=== PATIENT | male | born 1955 | race African-American/Black ===

== ENCOUNTER 2018-07-20 09:46 | Emergency (ER) | payer OTHER ==
[~2018-07-20] VITALS: Ht 185.4 cm; Wt 68.0 kg
[2018-07-20 10:08] LABS: URINE BILIRUBIN NEGATIVE (Negative); URINE BLOOD NEGATIVE (Negative); URINE CLARITY CLEAR; URINE COLOR YELLOW; URINE GLUCOSE-RANDOM* 3+ (Negative); URINE KETONES NEGATIVE (Negative); URINE LEUKOCYTES-REFLEX NEGATIVE (Negative); URINE NITRITE-REFLEX NEGATIVE (Negative); URINE PROTEIN (DIPSTICK) NEGATIVE (Negative); URINE UROBILINOGEN 0.2 E.U./dl (0.2-1.0)
[2018-07-20 10:30] LABS: HEMATOCRIT 42.8 % (42.0-52.0); HEMOGLOBIN 14.6 gm/dL (14.0-18.0); MCH 27.6 pg (26.0-34.0); MCHC 34.2 g/dL (28.0-37.0); MCV 80.9 fL (80.0-100.0); RBC 5.29 mil/uL (4.50-6.00); RDW 15.4 % (10.5-14.5); WBC 9.2 thou/uL (4.0-11.0)
[2018-07-20 10:36] LABS: CALCIUM 9.3 mg/dL (8.5-10.1); CREATININE 1.3 mg/dL (0.7-1.3); POTASSIUM 3.8 mmol/L (3.5-5.1)
[2018-07-20 10:42] LABS: ALBUMIN 4.1 g/dL (3.4-5.0); TOTAL BILIRUBIN 0.9 mg/dL (<0.1-1.0); TOTAL PROTEIN 7.6 g/dL (6.4-8.2)
[2018-07-20] MEDS ORDERED: LISINOPRIL10 MG PO (11:31)
[2018-07-20] MEDS ORDERED: METFORMIN HCL500 MG PO (11:31)
[2018-07-20 11:41] VITALS: BP 185/96
--- NOTE | 2018-07-20 23:31 | EKG ---
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 : 1955 Requested By: Kristin Rodarte Order Number: [id number] MD: Sergio Watts Measurements Intervals [place] Rate: 94 P: 56 NV: 176 QRS: 1 QRSD: 86 T: 36 QT: 345 QTc: 432 Interpretive Statements Sinus rhythm Anterior infarct, old baseline wander non specific st/t wave changes No previous ECG available for comparison Electronically Signed On 07-20-2018 23:31:11 CDT by Sergio Watts [email or web address] ��������������������������������������������� <ELECTRONICALLY SIGNED> ���������������������������������������� By: Sergio Watts MD ��������������������������������������������� 07/20/18 2331 1003 02 Sergio Watts MD /PHILLY
== END 2018-07-20 11:49 | disposition home or self-care (01) ==
LOC: ER 09:46
PROVIDERS: Student in an Organized Health Care Education/Training Program
DX: E11.65 Type 2 diabetes mellitus with hyperglycemia (principal); I10 Essential (primary) hypertension

== ENCOUNTER 2018-10-27 06:17 | Emergency (ER) | payer OTHER ==
[~2018-10-27] VITALS: Ht 185.4 cm; Wt 61.2 kg
[~2018-10-27 06:17] MED LIST: LISINOPRIL10 MG PO; METFORMIN HCL500 MG PO
[2018-10-27 06:34] LABS: ABSOLUTE NEUTROPHILS 11.2 thou/uL (1.4-8.2); BASOPHILS 0.4 % (0.0-2.0); EOSINOPHILS 0.4 % (0.0-3.0); HEMATOCRIT 40.8 % (42.0-52.0); HEMOGLOBIN 13.7 gm/dL (14.0-18.0); LYMPHOCYTES 13.1 % (24.0-44.0); MCH 27.1 pg (26.0-34.0); MCHC 33.6 g/dL (28.0-37.0); MCV 80.5 fL (80.0-100.0); MONOCYTES 5.5 % (1.0-8.0); PLATELET COUNT 270 thou/uL (150-400); POLYS 80.6 % (36.0-66.0); RBC 5.07 mil/uL (4.50-6.00); RDW 14.6 % (10.5-14.5); WBC 13.8 thou/uL (4.0-11.0)
[2018-10-27] MEDS ORDERED: GLYBURIDE 2.52.5 MG PO (06:48)
[2018-10-27 06:53] LABS: ANION GAP 10 mmol/L (7-16); BUN 17 mg/dL (7-18); CHLORIDE 100 mmol/L (98-107); CO2 28 mmol/L (21-32); CREATININE 1.3 mg/dL (0.7-1.3); GLUCOSE 51 mg/dL (74-106); POTASSIUM 3.1 mmol/L (3.5-5.1); SODIUM 138 mmol/L (136-145)
[2018-10-27 06:54] LABS: APTT 26.5 Seconds (24.5-32.8); PROTIME 10.6 Seconds (9.3-11.4)
[2018-10-27 07:03] LABS: SGOT 15 U/L (15-37); SGPT 15 U/L (30-65); TOTAL BILIRUBIN 0.7 mg/dL (<0.1-1.0); TOTAL PROTEIN 7.5 g/dL (6.4-8.2); TROPONIN-I <0.06 ng/mL (<0.06)
[2018-10-27 08:50] VITALS: BP 146/83
--- NOTE | 2018-10-27 12:58 | EKG ---
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1955 Requested By: Ramon Catalan Order Number: [id number] MD: Haja Mitchell Measurements Intervals [place] Rate: 73 P: 49 [place]: 140 QRS: 7 QRSD: 93 T: 10 QT: 405 QTc: 447 Interpretive Statements Sinus rhythm Poor R wave progression Compared to ECG 07/20/2018 10:03:31 No significant changes Electronically Signed On 10-27-2018 12:58:43 CDT by Haja Mitchell [email or web address] ��������������������������������������������� <ELECTRONICALLY SIGNED> ���������������������������������������� By: Haja Mitchell MD, [facility] ��������������������������������������������� 10/27/18 [phone] Haja Mitchell MD, FACC /EPI
== END 2018-10-27 08:50 | disposition home or self-care (01) ==
LOC: ER 06:17
PROVIDERS: Emergency Medicine
DX: E11.649 Type 2 diabetes mellitus with hypoglycemia without coma (principal); I10 Essential (primary) hypertension; Z79.84 Long term (current) use of oral hypoglycemic drugs; Z79.899 Other long term (current) drug therapy

== ENCOUNTER 2019-10-26 01:44 | Emergency (ER) | payer OTHER ==
[~2019-10-26] VITALS: Ht 177.8 cm; Wt 68.0 kg
[~2019-10-26 01:44] MED LIST changes: +GLYBURIDE 2.52.5 MG PO
== END 2019-10-26 01:49 ==
LOC: ER 01:44
DX: I46.9 Cardiac arrest, cause unspecified (principal); I10 Essential (primary) hypertension; E11.9 Type 2 diabetes mellitus without complications; Z79.84 Long term (current) use of oral hypoglycemic drugs; Z79.899 Other long term (current) drug therapy